=== PATIENT | male | born 1990 | race Caucasian/White ===

== ENCOUNTER 2020-05-23 11:51 | Emergency (ER) | payer OTHER, MEDICAID, SELFPAY ==
[2020-05-23 11:58] VITALS: BP 136/88; PULSE 74; RESP 14; TEMP 36.4; O2SAT 97; BMI 23.0
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
--- NOTE | 2020-05-23 12:31 | DI.RAD.S_ITS ---
PROCEDURE: XR WRIST RT MIN 3V INDICATIONS: pain sp punching wall TECHNIQUE: 4 views of the wrist were acquired. COMPARISON: None. FINDINGS: Bones: Minimally displaced hamate fracture. Remote fifth metacarpal fracture with resultant deformity. No suspicious bony lesions. Scaphoid view: Scaphoid intact Soft tissues: No suspicious soft tissue calcifications. IMPRESSION: Minimally displaced hamate fracture. Dictated by: Rajinder Wheatley M.D. on 05/23/2020 at 11:42 Approved by: Rajinder Wheatley M.D. on 05/23/2020 at 11:43
[2020-05-23] MEDS: ONDANSETRON 4 MG ODT SL (13:35)
[2020-05-23] MEDS: OXYCODONE/ACETAMINOPHEN 5/325 TABLET 1 TAB PO (13:35)
[2020-05-23 13:56] VITALS: BP 135/80; PULSE 60; RESP 14; O2SAT 98
== END 2020-05-23 14:23 | disposition home or self-care (01) ==
PROVIDERS: Emergency Provider Nurse Practitioner Family
DX: S62.141A Displaced fracture of body of hamate [unciform] bone, right wrist, initial encounter for closed fracture (principal); W51.XXXA Accidental striking against or bumped into by another person, initial encounter
CPT/HCPCS: 29125; 73110; 73130; 99283; 99284

== ENCOUNTER 2020-11-08 13:04 | Emergency (ER) | payer OTHER, MEDICAID, SELFPAY ==
[2020-11-08 14:06] VITALS: BP 126/59; PULSE 67; RESP 16; TEMP 36.8; O2SAT 99; BMI 24.3
--- NOTE | 2020-11-08 16:53 | ED.DENTAL ---
HPI - Dental/Oral General Chief complaint: Dental/Oral Stated complaint: Abcess Tooth, Facial Swelling Time Seen by Provider: 11/08/20 16:53 Source: patient Mode of arrival: Ambulatory Limitations: no limitations History of Present Illness HPI Narrative: 30-year-old male comes in with 24 hours of dental pain and increasing swelling with rapid worsening of swelling over the last 12. No fevers, no nausea or vomiting. Patient does not have any redness but has swelling of the upper lip he has had dental abscess in the past but not at this specific location. He states he has a lot of dental caries. He has been to [facility] but is waiting to follow up with a different dentist once his medical insurance kicks in. He denies any other major medical issues. No allergies to medications. He has tried ibuprofen 800 mg with minimal improvement of pain. Location: Tooth # (8) Related Data Home Medications Medication Instructions Recorded Confirmed ibuprofen 800 mg PO Q6H 11/08/20 11/08/20 Previous Rx's Medication Instructions Recorded penicillin V potassium 500 mg PO QID #40 tab 11/08/20 Allergies Allergy/AdvReac Type Severity Reaction Status Date / Time No Known Drug Allergies Allergy Verified 11/08/20 16:47 Review of Systems Review of Systems ROS Unobtainable: All systems reviewed & are unremarkable except as noted in HPI and below Patient History Medical History Shingles Social History Smoking Status: Current every day smoker Smoking Status: Current every day smoker tobacco type: cigarettes alcohol intake frequency: a few times a month Substance Use Type: does not use Exam Narrative Exam Narrative: GEN: well nourished, well appearing male, alert and oriented x 3, patient appears to be in mild distress. HEENT: Atraumatic, pupils are equal round reactive to light, extraocular movements are intact, nares are clear, TMs are clear with no fluid, there is no conjunctival pallor. Throat is clear without any exudates, erythema, tonsillar enlargement or uvular deviation, patient has extensive poor dentition. Swelling of the gum above the right 8. Tooth. Patient also has swelling of the philtrum but no fluid collection. No induration. No erythema or warmth. HEART: Regular rate and rhythm without murmur, clicks, rubs. No carotid bruits, pulses are equal in upper and lower extremities LUNGS:Lungs clear to auscultation, no wheezes, rales, crackles, chest moves symmetrically ABD:bowel sounds normal, soft, non-tender, no guarding, rebound, rigidity, no masses noted, no hepatosplenomegaly MSCL: Non-tender, full range of motion, normal gait NEURO:CN 2-12 intact, sensation normal Initial Vital Signs Initial Vital Signs: Vital Signs Temperature 98.2 F 11/08/20 14:06 Pulse Rate 67 11/08/20 14:06 Respiratory Rate 16 11/08/20 14:06 Blood Pressure 126/59 L 11/08/20 14:06 Pulse Oximetry 99 11/08/20 14:06 Course Vital Signs Vital signs: Vital Signs - 8 hr 11/08/20 14:06 11/08/20 17:23 Temperature 98.2 F Pulse Rate 67 53 L Respiratory Rate 16 18 Blood Pressure 126/59 L 124/78 Pulse Oximetry 99 100 Discharge Plan Departure Patient Disposition: Home Clinical Impression: Dental infection Instructions: Tooth Abscess Activity Restrictions/Additional Instructions: Follow-up with a dentist in the next 1-2 weeks. Take antibiotics until they are completely gone. Prescription to [facility] in [place] You can continue to alternate Tylenol and/or ibuprofen. You can take a maximum of 800 mg of ibuprofen every 8 hours and or a 1000 mg of Tylenol every 8 hours as needed for pain. Return to the ER for fevers, increasing swelling, redness, signs of abscess, rapidly worsening pain, swelling of your tongue, airway or in your mouth. Prescriptions: New penicillin V potassium 500 mg tablet 500 mg PO QID Qty: 40 RF: 0 No Action ibuprofen 800 mg Tablet 800 mg PO Q6H RF: 0
[2020-11-08 17:23] VITALS: BP 124/78; PULSE 53; RESP 18; O2SAT 100
== END 2020-11-08 17:28 | disposition home or self-care (01) ==
PROVIDERS: Emergency Provider Emergency Medicine
DX: K04.7 Periapical abscess without sinus (principal)
CPT/HCPCS: 99281

== ENCOUNTER → 2022-04-05 11:56 | Outpatient (CLI) | payer OTHER, MEDICAID, SELFPAY ==
[2022-04-05 13:29] LABS: Urine N gonorrhoeae NOT DETECTED
[2022-04-05 13:51] LABS: Urine Chlamydia NOT DETECTED
[2022-04-06 07:37] LABS: RPR Screen Non Reactive (Non Reactive)
[2022-04-06 11:23] LABS: HSV 2 IGG AB < 0.91 index (0.00-0.90)
[2022-04-06 17:22] LABS: HIV 1 & 2 Ab/Ag 4th Gen Combo NEGATIVE (NEGATIVE); Hep C Virus Ab w/Reflex Quant NEGATIVE s/c (NEGATIVE)
[2022-04-06 21:11] LABS: HSV I/II IgM <0.91 Ratio (0.00-0.90)
== END ==
PROVIDERS: Referring Provider Physician Assistant; Visit Provider Physician Assistant
DX: Z11.3 Encounter for screening for infections with a predominantly sexual mode of transmission (principal)
CPT/HCPCS: 36415; 86592; 86694; 86695; 86696; 86803; 87389; 87491; 87591

== ENCOUNTER → 2022-06-09 18:37 | Outpatient (CLI) | payer OTHER, MEDICAID, SELFPAY | PROVIDERS: Visit Provider Student in an Organized Health Care Education/Training Program | DX: L02.91 Cutaneous abscess, unspecified (principal) | CPT/HCPCS: 87070; 87077; 87205 ==

== ENCOUNTER 2023-01-10 08:31 | Emergency (ER) | payer OTHER, SELFPAY ==
[2023-01-10 08:33] VITALS: BP 124/79; PULSE 60; RESP 18; TEMP 36.1; O2SAT 100; BMI 20.7
--- NOTE | 2023-01-10 08:41 | DI.RAD.S_ITS ---
PROCEDURE: XR FINGER LT MIN 2V INDICATIONS: crushed middle finger at work TECHNIQUE: AP hand, 2 views of the 3rd finger(s) acquired. COMPARISON: None. FINDINGS: Bones: Comminuted fracture involving 3rd distal phalangeal tuft is seen with distal displacement at fracture site. No other fracture or dislocation. No suspicious bony lesions. Soft tissues: Soft tissue swelling surrounding tip of 3rd digit is noted. No suspicious soft tissue calcifications. IMPRESSION: Comminuted fracture involving 3rd distal phalangeal tuft as above. Dictated by: Shemar Lee M.D. on 01/10/2023 at 9:05 Approved by: Shemar Lee M.D. on 01/10/2023 at 9:07
--- NOTE | 2023-01-10 08:48 | ED_ITS ---
HPI - Extremity Injury (Upper) General Chief Complaint: Extremity Injury, Upper Stated Complaint: smashed finger at work Time Seen by Provider: 01/10/23 08:33 Source: patient and family Mode of arrival: Ambulatory History of Present Illness HPI narrative: 32-year-old male daily smoker with noncontributory medical history presents with significant other after suffering a work-related left middle finger injury. He states that he was loading a truck and the tip of his left middle finger was crushed between a large piece of metal and a piece of wood. He has pain at the tip of his finger and it lifted the nail up there is very little if any bleeding. His tetanus is not current and will need to be updated. He has increased pain with range of motion but improved with rest. He is not dizzy nor weak or lightheaded, denies chest pain or shortness of breath and is otherwise well and free of complaint Related Data Home Medications Medication Instructions Recorded Confirmed ibuprofen 800 mg tablet 800 mg PO Q6H 11/08/20 06/09/22 Previous Rx's Medication Instructions Recorded clindamycin HCl 300 mg capsule 300 mg PO TID 10 days #30 caps 06/09/22 cephalexin 500 mg capsule 500 mg PO BID #14 caps 01/10/23 hydrocodone 5 mg-acetaminophen 325 1 tab PO Q4-6H PRN pain #10 tabs 01/10/23 mg tablet Allergies Allergy/AdvReac Type Severity Reaction Status Date / Time No Known Drug Allergies Allergy Verified 06/09/22 18:19 Review of Systems Review of Systems Narrative: GENERAL: Denies chills, fatigue, malaise, fever, sweats. HEENT: Denies sinus pain, ear pain, sore throat, difficulty swallowing, dizziness. RESPIRATORY: Denies dyspnea, cough, wheezing, hemoptysis, sputum. CARDIOVASCULAR: Denies chest pain, palpitations, orthopnea, edema, GASTROINTESTINAL: Denies nausea, vomiting, abdominal pain, diarrhea, constipation, melena. : Denies dysuria, frequency, incontinence, hematuria, urinary retention. MUSCULOSKELETAL: See HPI SKIN: Denies rash, skin lesions, or other NEUROLOGIC: Denies weakness, headache, numbness, change in speech, confusion, seizures, incoordination. PSYCHIATRIC: No concerning psychosocial issues. 12 point review of systems is negative except for those stated above Patient History Medical History (Updated 01/10/23 @ 10:00 by Austin Ramos DO) Shingles Social History Smoking Status: Current every day smoker Smoking Status: Current every day smoker tobacco type: cigarettes alcohol intake frequency: a few times a month Substance Use Type: does not use Exam Narrative Exam Narrative: GEN: AOx3 and in mild distress EYES: Pupils are equal, round, and reactive to light and accommodation. Extraoccular muscles are intact bilaterally. There is no subconjunctival hemorrhage or exudate. CHEST: Lungs are clear to auscultation bilaterally and free of wheezes, rales, or rhonchi. Heart rate is regular rhythm, there are no murmurs, clicks, rubs, or gallops. There is no chest wall tenderness. ABD: Abdomen is soft and nontender. There is no guarding or rebound. Bowel soun ds are normal in all 4 quadrants. There is no mass or organomegaly. EXT: Full but slightly painful range of motion of left middle finger, no pain proximal or middle phalanx, injury to distal phalanx, nail has lifted, some minimal bleeding underneath the nail but none active, no obvious deformity, sensation intact SKIN: Warm, pink, and dry. No erythema or rash Initial Vital Signs Initial Vital Signs: Vital Signs Temperature 96.9 F L 01/10/23 08:33 Pulse Rate 60 01/10/23 08:33 Respiratory Rate 18 01/10/23 08:33 Blood Pressure 124/79 01/10/23 08:33 Pulse Oximetry 100 01/10/23 08:33 Oxygen Delivery Method 01/10/23 08:33 Course Orders Ordered: ED Orders 01/10/23 08:41 XR finger LT min 2V Stat Discontinued Medications Diphtheria/Tetanus/Acell Pertussis (Tet,Diph,Pertuss(Acell),Vac/Pf 0.5 Ml Syringe) 0.5 ml IM .ONCE ONE Stop: 01/10/23 08:42 Last Admin: 01/10/23 08:52 Dose: 0.5 ml Lidocaine HCl (Lidocaine 2% Inj Mdv 20ml) 5 ml INJ INTRA-OP ONE Stop: 01/10/23 08:51 Last Admin: 01/10/23 08:52 Dose: 5 ml Vital Signs Vital signs: Vital Signs - 8 hr 01/10/23 08:33 01/10/23 09:32 Temperature 96.9 F L Pulse Rate 60 65 Respiratory Rate 18 18 Blood Pressure 124/79 120/74 Pulse Oximetry 100 98 Oxygen Delivery Method Room Air MDM - Extremity Injury (Upper) Imaging Data Extremity x-ray #1: Radiologist's Impression: Brian Peters??32??M??1990 ? Allergy/Adv: No Known Drug Allergies (More??) Close Finger X-Ray (Signed) Shemar Lee - 01/10/23 Wrist X-Ray (Signed) Rajinder Wheatley - 05/23/20 Hand X-Ray (Signed) Rajinder Wheatley - 05/23/20 [address] [address] XRay Report Signed Patient: Brian Peters MR#: [id number] : 1990 Acct:[id number] Age/Sex: 32 / M Date of Service: 01/10/23 Loc: ED Accession Number: [id number] ?? Procedure: XR finger LT min 2V Ordering Provider: Austin Ramos D.O. PROCEDURE:? XR FINGER LT MIN 2V ? INDICATIONS:? crushed middle finger at work ? TECHNIQUE:? AP hand, 2 views of the 3rd finger(s) acquired.? ? COMPARISON:? None. ? FINDINGS:? ? Bones:? Comminuted fracture involving 3rd distal phalangeal tuft is seen with distal displacement at fracture site.? No other fracture or dislocation.? No suspicious bony lesions.? ? Soft tissues:? Soft tissue swelling surrounding tip of 3rd digit is noted.? No suspicious soft tissue calcifications.? ? IMPRESSION:? Comminuted fracture involving 3rd distal phalangeal tuft as above. ? ? Dictated by: Shemar Lee M.D. on 01/10/2023 at 9:05 ? ? Approved by: Shemar Lee M.D. on 01/10/2023 at 9:07 ? [facility] Narrative Medical decision making narrative: [32M with crush injury to Left middle finger] Multiple etiologies for patient's symptoms considered including, but not limited to: [Fracture, open fracture, nail bed laceration versus other] Prior Charts reviewed: Prior ED visits noted Labs reviewed and interpreted by myself: None indicated Imaging reviewed: Tuft fracture left middle finger Nail is partially removed, minimal if any bleeding from nailbed, no indication for removal. 3 sutures placed to hold nail in place. Findings and discharge diagnosis discussed with patient/family followed by verbalization of understanding Return precautions discussed with patient/family whom verbalize understanding of diagnosis and plan Discharge Plan Departure Patient Disposition: Home Clinical Impression: Open finger fracture Qualifiers: Encounter type: initial encounter Finger: middle finger Phalanx: distal Fracture alignment: nondisplaced Laterality: left Qualified Code(s): S62.663B - Nondisplaced fracture of distal phalanx of left middle finger, initial encounter for open fracture Instructions: DI for Finger Fracture Activity Restrictions/Additional Instructions: *You have been diagnosed with [Left middle finger open distal kevin fracture ] *What to do: *Please continue to take your regular medications as directed. [x ] New medication prescriptions sent to your pharmacy: [[facility]] [ ] New medication written as a paper prescription [x] Tylenol and occasional Motrin for pain *Please follow up with Dr. Dial ] of [facility] in 7-10 days, call for an appointment. Let them know you were seen in the Emergency Department and that we ask that you be seen in follow up. We will electronically transmit a record of today's note if your PCP is in our system *Return to Emergency Department if you should have any new, worsening or concerning symptoms, such as [worsening pain, significant swelling, cold extremities, numbness, tingling, weakness or other bothersome symptoms *If you do not have a primary care provider please contact the [facility] Resource line at [phone]. They will ask some questions about your medical history and help get you set up with a doctor in the community. *Return to Emergency Department if you should have any new, worsening or concerning symptoms, such as [fever greater than 101 F, shaking chills, worsening pain, persistent vomiting or other bothersome symptoms] Prescriptions: New hydrocodone-acetaminophen 5-325 mg tablet 1 tab PO Q4-6H PRN (Reason: pain) Qty: 10 0RF cephalexin 500 mg capsule 500 mg PO BID Qty: 14 0RF No Action clindamycin HCl 300 mg capsule 300 mg PO TID 10 Days Qty: 30 1RF ibuprofen 800 mg Tablet 800 mg PO Q6H Referrals: Miscellaneous,Doctor, [Primary Care Provider] - Jasiel Murillo MD [Physician] - Stand Alone Forms: Patient Portal/API, Work Release Note
[2023-01-10] MEDS: TET,DIPH,PERTUSS(ACELL),VAC/PF 0.5 ML SYRINGE IM (08:52)
[2023-01-10] MEDS: LIDOCAINE 2% INJ MDV 20ML 5 ML INJ (08:52)
[2023-01-10 09:32] VITALS: BP 120/74; PULSE 65; RESP 18; O2SAT 98
== END 2023-01-10 10:12 | disposition home or self-care (01) ==
PROVIDERS: Emergency Provider Emergency Medicine
DX: S62.633A Displaced fracture of distal phalanx of left middle finger, initial encounter for closed fracture (principal); W23.0XXA Caught, crushed, jammed, or pinched between moving objects, initial encounter; Y99.0 Civilian activity done for income or pay; Z23 Encounter for immunization
CPT/HCPCS: 73140; 90471; 99283; 99284; 90715

== ENCOUNTER 2025-01-28 17:09 | Emergency (ER) | payer OTHER, SELFPAY ==
[2025-01-28 17:11] VITALS: BP 117/74; PULSE 63; RESP 20; TEMP 37; O2SAT 95; BMI 21.9
--- NOTE | 2025-01-28 17:16 | DI.RAD.S_ITS ---
PROCEDURE: XR FINGER LT MIN 2V INDICATIONS: r/o fracture TECHNIQUE: AP hand, 2 views of the 2nd finger(s) acquired. COMPARISON: [facility], , XR FINGER LT MIN 2V, 01/10/2023, 8:41. FINDINGS: Bones: Severely comminuted shaft fracture of the middle phalanx of the 2nd finger, nondisplaced, potentially not extending to the articular surface. No other fractures or dislocations. Soft tissues: No suspicious soft tissue calcifications. IMPRESSION: Comminuted 2nd finger middle phalanx shaft fracture Dictated by: Rajinder Wheatley M.D. on 01/28/2025 at 18:50 Approved by: Rajinder Wheatley M.D. on 01/28/2025 at 18:51
--- NOTE | 2025-01-28 18:27 | ED_ITS ---
HPI - Extremity Injury (Upper) <Elaine Goldman PA-C - Last Filed: 01/28/25 19:20> General Chief Complaint: Extremity Injury, Upper Stated Complaint: finger injury Time Seen by Provider: 01/28/25 18:19 Source: patient Mode of arrival: Ambulatory History of Present Illness HPI narrative: Mr. Peters is a very pleasant 34-year-old male with no reported past medical history presents to the emergency department for left index finger injury that occurred prior to arrival. He accidentally slammed his left index finger in a car door. He now has pain swelling and bruising of the whole left finger and a blood blister overlying the PIP joint. Reports some decreased sensation on the radial aspect of the finger otherwise still has good sensation on the tip of the finger. No bleeding or open wounds. He is only able to bend the finger at the MCP joint. No other injuries. He took 3 ibuprofen prior to arrival. Related Data Home Medications Medication Instructions Recorded Confirmed acetaminophen 325 mg capsule 650 mg PO Q6H PRN 01/19/23 09/10/23 (Tylenol) ibuprofen 200 mg tablet 200 mg PO Q6H PRN 01/19/23 09/10/23 Previous Rx's Medication Instructions Recorded hydrocodone 5 mg-acetaminophen 325 1 tab PO TID PRN pain #10 tabs 01/19/23 mg tablet amoxicillin 875 mg-potassium 1 tab PO BID #10 tabs 09/10/23 clavulanate 125 mg tablet chlorhexidine gluconate 0.12 % 15 ml buccal BID #600 mL 09/10/23 mouthwash (Peridex) Allergies Allergy/AdvReac Type Severity Reaction Status Date / Time No Known Drug Allergies Allergy Verified 09/10/23 09:15 Review of Systems <Elaine Goldman PA-C - Last Filed: 01/28/25 19:20> Review of Systems ROS Unobtainable: All systems reviewed & are unremarkable except as noted in HPI and below Patient History <Elaine Goldman PA-C - Last Filed: 01/28/25 19:20> Medical History Vapes nicotine containing substance Family History Mother Cancer History of heart disease Social History Smoking Status: Current every day smoker Smoking Status: Current every day smoker tobacco type: vaping alcohol intake frequency: a few times a month Exam <Elaine Goldman PA-C - Last Filed: 01/28/25 19:20> Narrative Exam Narrative: GENERAL: 34 year old patient appears stated age. Well-developed patient, in no acute distress. RESPIRATORY: ?Nonlabored respirations. ?Speaking in clear, full sentences. EXTREMITIES: Left index finger with diffuse swelling and ecchymosis. Blood- filled blister, 1 cm, overlying dorsal PIP joint. Limited flexion and extension range of motion at the D IP and PIP. Full flexion-extension at the MCP. Focal tenderness to palpation of the middle phalanx. Brisk capillary refill in the distal phalanx. Sensation intact to light touch. No open wounds. NEURO: AOx3. ?Clear speech. ? SKIN: No lacerations. Initial Vital Signs Initial Vital Signs: Vital Signs Temperature 98.6 F 01/28/25 17:11 Pulse Rate 63 01/28/25 17:11 Respiratory Rate 20 01/28/25 17:11 Blood Pressure 117/74 01/28/25 17:11 Pulse Oximetry 95 01/28/25 17:11 Oxygen Delivery Method Room Air 01/28/25 17:11 <Ewa Carson DO - Last Filed: 01/29/25 04:14> Initial Vital Signs Initial Vital Signs: Vital Signs Temperature 98.6 F 01/28/25 17:11 Pulse Rate 63 01/28/25 17:11 Respiratory Rate 20 01/28/25 17:11 Blood Pressure 117/74 01/28/25 17:11 Pulse Oximetry 95 01/28/25 17:11 Oxygen Delivery Method Room Air 01/28/25 17:11 Course <Elaine Goldman PA-C - Last Filed: 01/28/25 19:20> Orders Ordered: Discontinued Medications Hydrocodone Bitart/Acetaminophen (Hydrocodone/Acet 5/325 Tablet) 1 tab PO NOW ONE Stop: 01/28/25 18:38 Last Admin: 01/28/25 18:51 Dose: 1 tab Documented By: ANTONY Vital Signs Vital signs: Vital Signs - 8 hr 01/28/25 17:11 Temperature 98.6 F Pulse Rate 63 Respiratory Rate 20 Blood Pressure 117/74 Pulse Oximetry 95 Oxygen Delivery Method Room Air <Ewa Carson DO - Last Filed: 01/29/25 04:14> Orders Ordered: Discontinued Medications Hydrocodone Bitart/Acetaminophen (Hydrocodone/Acet 5/325 Tablet) 1 tab PO NOW ONE Stop: 01/28/25 18:38 Last Admin: 01/28/25 18:51 Dose: 1 tab Documented By: ANTONY Vital Signs Vital signs: Vital Signs - 8 hr 01/28/25 17:11 Temperature 98.6 F Pulse Rate 63 Respiratory Rate 20 Blood Pressure 117/74 Pulse Oximetry 95 Oxygen Delivery Method Room Air MDM - Extremity Injury (Upper) <Elaine Goldman PA-C - Last Filed: 01/28/25 19:20> Medical Records Attestation: I reviewed the patient's medical records. Imaging Data Left Hand X-Ray: Radiologist's Impression: PROCEDURE: XR FINGER LT MIN 2V INDICATIONS: r/o fracture TECHNIQUE: AP hand, 2 views of the 2nd finger(s) acquired. COMPARISON: [facility], , XR FINGER LT MIN 2V, 01/10/2023, 8:41. FINDINGS: Bones: Severely comminuted shaft fracture of the middle phalanx of the 2nd finger, nondisplaced, potentially not extending to the articular surface. No other fractures or dislocations. Soft tissues: No suspicious soft tissue calcifications. IMPRESSION: Comminuted 2nd finger middle phalanx shaft fracture MDM Narrative Medical decision making narrative: 34-year-old male with no reported past medical history presents to the emergency department for left index finger injury that occurred prior to arrival. Right- hand dominant. Differential diagnosis includes but is not limited to finger fracture, sprain, strain, contusion, etc. On exam patient is in no acute distress, nontoxic appearing, vital signs appropriate. He is swelling, bruising of the left index finger after closing a door. He has a closed blood blister on the dorsal aspect of the finger. No open wounds. He already took ibuprofen, hydrocodone-acetaminophen ordered for persistent pain x-ray reveals comminuted 2nd finger middle phalanx shaft fracture. Patient was placed into an aluminum splint and index finger was elaine-taped to middle finger. He was neurovascularly intact before and after splint application. Advised follow up with Orthopedics for further management, rice therapy, ibuprofen, acetaminophen, ED return precautions discussed. Patient his bowels verbalized understanding of all information agreeable with the plan. He is stable for discharge home. Discharge Plan Departure Patient Disposition: Home Clinical Impression: Finger fracture, left Qualifiers: Encounter type: initial encounter Finger: index finger Fracture type: closed Phalanx: middle Fracture alignment: nondisplaced Qualified Code(s): S62.651A - Nondisplaced fracture of middle phalanx of left index finger, initial encounter for closed fracture Instructions: DI for Finger Fracture Activity Restrictions/Additional Instructions: Dear Mr. Peters, Thank you for coming to the emergency department. Today your x-ray shows a fragmented fracture of the 2nd bone in your left index finger. Please keep this finger straight by elaine taping it to the middle finger or wearing the aluminum splint. Follow up with the orthopedic doctor for further evaluation. You can call to schedule an appointment at [facility] with Dr. Yusuf at [phone]. Please take Ibuprofen (Motrin/Advil) or Acetaminophen (Tylenol) for pain. These are available over the counter. You may take Ibuprofen 600 mg every 8 hours with food for pain. You may also take Acetaminophen 650 mg every 4-6 hours for pain. Do not exceed 3000 mg of Tylenol a day as this can cause liver damage. Do not drink alcohol with either of these medications. Please use RICE therapy for your pain in addition to ibuprofen/acetaminophen. Rest the painful area. Ice the area of pain/swelling for at least 15 minutes, 4x a day. Compress the area of swelling using a brace, wrap, or splint if applied. Elevate the painful or swollen extremity by supporting it above the level of the heart with pillows when sitting or laying. Please follow up with your primary care doctor within the next 2-3 days for ER follow-up. (If you do not have a PCP you can call [phone]. ?to schedule an appointment with an [facility] Primary Care Provider) IF YOU DEVELOP ANY NEW OR WORSENING SYMPTOMS, RETURN TO THE ER! Please read the attached instructions, they highlight more specific treatments and interventions for you at home. Thank you for letting me participate in your care, Elaine Goldman PA-C Prescriptions: No Action amoxicillin-pot clavulanate 875-125 mg tablet 1 tab PO BID Qty: 10 0RF chlorhexidine gluconate [Peridex] 0.12 % mouthwash 15 ml buccal BID Qty: 600 0RF ibuprofen 200 mg tablet 200 mg PO Q6H PRN acetaminophen [Tylenol] 325 mg capsule 650 mg PO Q6H PRN hydrocodone-acetaminophen 5-325 mg tablet 1 tab PO TID PRN (Reason: pain) Qty: 10 0RF Referrals: Danny Nix DO [Primary Care Provider] - Rafal Yusuf MD [Physician] - (closed Comminuted 2nd finger middle phalanx shaft fracture) Stand Alone Forms: Patient Portal/API/Survey ED Sign-out <Ewa Carson DO - Last Filed: 01/29/25 04:14> Cosign ED Attending Cosignature Attestation: I was immediately available in the department for consultation.
[2025-01-28] MEDS: HYDROCODONE/ACET 5/325 TABLET 1 TAB PO (18:51)
--- NOTE | 2025-01-28 19:21 | PC.NURSE ---
Pt reports he slammed his finger in car door around [id number] today. Swelling and bruising noted to left pointer finger. Blood blister also noted on top of finger--not open. Pt able to move finger slightly with pain/discomfort. No open wounds noted.
[2025-01-28 19:23] VITALS: BP 118/77; PULSE 53; RESP 16; TEMP 36.5; O2SAT 99
== END 2025-01-28 19:24 | disposition home or self-care (01) ==
PROVIDERS: Emergency Provider Physician Assistant; PCP Family Medicine
DX: S62.651A Nondisplaced fracture of middle phalanx of left index finger, initial encounter for closed fracture (principal); W23.0XXA Caught, crushed, jammed, or pinched between moving objects, initial encounter
CPT/HCPCS: 29130; 73140; 99283